=== PATIENT | female | born 1955 | race Two or more races ===

== ENCOUNTER 2019-11-22 16:08 | Emergency (ER) | payer OTHER ==
[~2019-11-22] VITALS: Ht 154.9 cm; Wt 69.9 kg
[2019-11-22] MEDS ORDERED: HYDROCODONE/APAP 5/325MG 1 EACH TABLET ONE (16:59)
[2019-11-22] MEDS ORDERED: predniSONE 20 MG TABLET ONE (16:59)
[2019-11-22] MEDS ORDERED: ALBUTEROL FS 2.5 MG/3 ML VIAL.NEB CONTNEB ONE (17:00)
[2019-11-22] MEDS ORDERED: IV NS 0.9% 500 ML IV ONE (17:00)
[2019-11-22] MEDS ORDERED: HYDROCODONE/APAP 5/325MG 1 EACH TABLET PO ONE (17:00)
[2019-11-22] MEDS ORDERED: predniSONE 20 MG TABLET PO ONE (17:00)
[2019-11-22] MEDS ORDERED: IPRATROPIUM NEB FS 0.5 MG/2.5 ML AMPUL.NEB NEB ONE (17:00)
--- NOTE | 2019-11-22 17:00 | NUR ---
PATIENT BIB FAMILY CAME IN TO ER C/O COUGH X 4 DAYS, UNRELIEVE W/ OTC COUGH MEDS. ON ROOM AIR, BREATHING EVENLY AND UNLABORED. WILL CONTINUE TO MONITOR ACCORDINGLY.
[2019-11-22 17:04] LABS: BASOPHILS # (AUTO) 0.1 /CMM (0.0-0.2); BASOPHILS % (AUTO) 0.8 % (0.0-2.0); EOSINOPHILS % (AUTO) 5.2 % (0.0-6.0); HEMATOCRIT 36 % (33-45); HEMOGLOBIN 11.8 g/dL (11.5-14.8); LYMPHOCYTES # (AUTO) 2.2 /CMM (0.8-4.8); MEAN CORPUSCULAR HGB CONC 33 g/dl (31.0-36.0); MEAN CORPUSCULAR VOLUME 83 fL (82-100); MONOCYTES % (AUTO) 14.3 % (2.0-12.0); NEUTROPHILS # (AUTO) 3.2 /CMM (1.8-8.9); NEUTROPHILS % (AUTO) 46.7 % (43.0-81.0); PLATELET COUNT (AUTO) 308 /CMM (150-450); RED BLOOD CELL COUNT(AUTO) 4.38 MIL/uL (4.0-5.2); WHITE BLOOD COUNT (AUTO) 6.8 K/uL (4.3-11.0)
[2019-11-22 17:38] LABS: BILIRUBIN,TOTAL 0.1 mg/dL (0.2-1.0); CARBON DIOXIDE 25 mmol/L (21-32); CHLORIDE 105 mmol/L (98-107); CREATININE 0.8 mg/dL (0.6-1.3); GLUCOSE 109 mg/dL (74-106); SODIUM SERUM 141 mmol/L (136-145); UREA NITROGEN, BLOOD 16 mg/dL (7-18)
[2019-11-22 17:39] LABS: ALANINE AMINOTRANSFERASE 31 U/L (12-78); ALBUMIN 3.9 g/dL (3.4-5.0); ALKALINE PHOSPHATASE 64 U/L (46-116); ASPARTATE AMINOTRANSFERASE 28 U/L (15-37); B-TYPE NATRIURETIC PEPTIDE 63 PG/ML (0-125)
[2019-11-22 17:40] LABS: TOTAL PROTEIN, SERUM 7.7 g/dL (6.4-8.2)
[2019-11-22 19:14] VITALS: BP 135/81
--- NOTE | 2019-11-22 19:14 | NUR ---
Patient discharged to home in stable condition. Written and verbal after care instructions given. Patient verbalizes understanding of instruction.IV removed. Catheter intact and site benign. Pressure and 4x4 applied to site. No bleeding noted.
== END 2019-11-22 19:14 | disposition home or self-care (01) ==
LOC: ER 16:09
DX: J40 Bronchitis, not specified as acute or chronic (principal); E78.00 Pure hypercholesterolemia, unspecified
CPT/HCPCS: 36415; 71045; 80048; 80076; 83880; 84484; 85025; 93005 ×2; 99284; J7040; J7512

== ENCOUNTER 2021-08-04 13:27 | Emergency (ER) | payer OTHER ==
[~2021-08-04] VITALS: Ht 157.5 cm; Wt 72.6 kg
--- NOTE | 2021-08-04 14:02 | NUR ---
THE PATIENT BIBS FOR C/O LOW BACK PAIN X 1 YEAR,WORSE TODAY. RATES PAIN 7/10. NO APPARENT DEFORMITY NOTED. WILL CONTINUE TO MONITOR THE PATIENT.
[2021-08-04] MEDS ORDERED: HYDROCODONE/APAP 5/325MG TABLET ONE ×2 (14:29→14:42)
[2021-08-04] MEDS ORDERED: HYDROCODONE/APAP 5/325MG TABLET PO ONE (14:30)
[2021-08-04] MEDS ORDERED: IBUP-1955 PO (15:12)
[2021-08-04] MEDS ORDERED: CYCL10TA9 PO (15:12)
--- NOTE | 2021-08-04 15:54 | NUR ---
Patient discharged to home in stable condition. Written and verbal after care instructions given. Patient verbalizes understanding of instruction.
[2021-08-04 15:55] VITALS: BP 153/88
== END 2021-08-04 15:56 | disposition home or self-care (01) ==
LOC: ER 13:28
DX: S22.088A Other fracture of T11-T12 vertebra, initial encounter for closed fracture (principal); M54.5 Low back pain; G89.29 Other chronic pain; E78.00 Pure hypercholesterolemia, unspecified; X58.XXXA Exposure to other specified factors, initial encounter; Y93.89 Activity, other specified; Y92.89 Other specified places as the place of occurrence of the external cause; Y99.8 Other external cause status
CPT/HCPCS: 72128-TC; 72131-TC